=== PATIENT | female | born 1985 | race Asian ===

== ENCOUNTER 2016-07-08 00:44 | Inpatient (IN) | payer BC ==
[~2016-07-08] VITALS: Ht 160 cm; Wt 68.5 kg
[2016-07-08] VITALS (40 sets, daily range): BP systolic 97–161; BP diastolic 53–100
[2016-07-08 02:01] LABS: EOSINOPHIL (%) 0.7 % (0-5); EOSINOPHIL COUNT 0.1 K/uL (0-0.3); HEMATOCRIT 39.5 % (36.0-46.0); IMMATURE GRANULOCYTE (%) 0.6 % (0.0-0.7); IMMATURE GRANULOCYTE COUNT 0.1 K/uL; INSTRUMENT ABS NEUTROPHIL CT 11.3 K/uL; LYMPHOCYTE COUNT 2.2 K/uL (1.0-2.8); MCH 29.7 PG (29.0-34.0); MCHC 32.9 G/DL (30.0-36.0); MCV 90.2 FL (83-99); MEAN PLAT.VOLUME 10.7 uM^3 (9.5-12.4); MONOCYTE (%) 5.9 % (3-12); MONOCYTE COUNT 0.9 K/uL (0-0.8); NEUTROPHIL (%) 77.7 % (45-76); NEUTROPHIL COUNT 11.3 K/uL (1.8-6.4); PLATELET COUNT 253 K/uL (156-360); RBC DIS.WIDTH-CV 14.2 % (11.8-14.6); RBC DIS.WIDTH-SD 46.7 % (39-53); RED BLOOD COUNT 4.38 M/uL (3.80-5.20); WHITE BLOOD COUNT 14.6 K/uL (4.1-10.2)
[2016-07-08] MEDS ORDERED: GLYBURID-METFO1 EAC1 PO (04:14)
[2016-07-08] MEDS ORDERED: PRENATAL TABLE1 EAC3 PO (04:15)
[2016-07-08] MEDS ORDERED: MICRONASE1.25 MG PO (04:15)
[2016-07-08] MEDS ORDERED: FIBER PO (04:16)
[2016-07-08 06:03] LABS: POINT-OF-CARE METER ID UU13113692
[2016-07-08 06:03] LABS: POINT-OF-CARE METER ID UU13113692
[2016-07-08] MEDS ORDERED: MOTRIN800 MG PO (08:31)
[2016-07-08] MEDS ORDERED: PERCOCET 5/31 TABLET PO (08:31)
[2016-07-09 08:15] VITALS: BP 108/60
[2016-07-09 15:45] VITALS: BP 107/72
[2016-07-09 22:58] VITALS: BP 129/71
[2016-07-10 07:39] VITALS: BP 113/67
== END 2016-07-10 12:50 | disposition home or self-care (01) | DRG 775 ==
LOC: LDRP-OP 00:44 → 2WEST 00:45 → LDRP-OP 08-17 10:40
PROVIDERS: Obstetrics & Gynecology
DX: O70.1 Second degree perineal laceration during delivery (principal); O77.0 Labor and delivery complicated by meconium in amniotic fluid; O24.425 Gestational diabetes mellitus in childbirth, controlled by oral hypoglycemic drugs; Z3A.38 38 weeks gestation of pregnancy; Z37.0 Single live birth
CPT/HCPCS: 82948; 85025; C1755; J0295; J3010; J7050; J7120

== ENCOUNTER 2017-05-05 20:39 | Emergency (ER) | payer BC ==
[~2017-05-05] VITALS: Ht 160 cm; Wt 66.0 kg
[~2017-05-05 20:39] MED LIST: FIBER PO; GLYBURID-METFO1 EAC1 PO; MICRONASE1.25 MG PO; MOTRIN800 MG PO; PERCOCET 5/31 TABLET PO; PRENATAL TABLE1 EAC3 PO
[2017-05-05 22:01] LABS: HEMATOCRIT 44.2 % (36.0-46.0); HEMOGLOBIN 14.9 G/DL (11.9-15.5); MCH 28.9 PG (29.0-34.0); MCHC 33.7 G/DL (30.0-36.0); MCV 85.8 FL (83-99); PLATELET COUNT 364 K/uL (156-360); RBC DIS.WIDTH-CV 12.4 % (11.8-14.6); RED BLOOD COUNT 5.15 M/uL (3.80-5.20)
[2017-05-05 22:14] LABS: ALBUMIN 4.5 g/dL (3.2-4.8)
[2017-05-05 22:15] LABS: CHLORIDE 106 mEq/L (99-109); POTASSIUM 4.1 mEq/L (3.7-5.4); SODIUM 139 mEq/L (136-147)
[2017-05-05 22:17] LABS: GLUCOSE 133 mg/dL (70-99); TOTAL PROTEIN 8.8 g/dL (6.4-8.3)
[2017-05-05 22:19] LABS: TOTAL BILIRUBIN 0.3 mg/dL (0.0-1.0)
[2017-05-05 22:20] LABS: ALKALINE PHOSPHATASE 93 IU/L (3-129)
[2017-05-05 22:21] LABS: CREATININE 0.8 mg/dL (0.6-1.3); GFR ESTIMATE (CALCULATED) > 59 mL/min/
[2017-05-05 22:22] LABS: AST (GOT) 22 IU/L (2-34); UREA NITROGEN (BUN) 15 mg/dL (9-23)
[2017-05-05 22:24] LABS: ALT (GPT) 20 IU/L (3-49); LIPASE 27 U/L (1.0-51.0)
[2017-05-05 22:30] LABS: QUANTITATIVE HCG < 4.0 MIU/ML
[2017-05-05 22:58] LABS: APPEARANCE SL.HAZY ((CLEAR)); BILIRUBIN NEGATIVE; BLOOD NEGATIVE; COLOR YELLOW ((YELLOW)); GLUCOSE (STRIP) NEGATIVE; KETONES 5; LEUKOCYTES LARGE; NITRITE NEGATIVE; PROTEIN (STRIP) 30; SPECIFIC GRAVITY 1.016 (1.000-1.030); UROBILINOGEN 0.2 MG/DL (0.2-1.0)
[2017-05-05 23:02] LABS: BACTERIA NONE SEEN /HPF; EPITHELIAL CELLS 2+ /HPF; MUCUS TRACE /LPF; RED BLOOD CELLS 0-5 /HPF (0-5); WHITE BLOOD CELLS TNTC /HPF (0-5)
[2017-05-06] MEDS ORDERED: KEFLEX500 MG PO (00:05)
[2017-05-06 00:17] VITALS: BP 110/70
== END 2017-05-06 00:18 | disposition home or self-care (01) ==
LOC: EME 20:39
PROVIDERS: Physician Assistant
DX: N39.0 Urinary tract infection, site not specified (principal)
CPT/HCPCS: 80053; 81003; 83690; 84702; 85027; J0696; J2405; J7030